=== PATIENT | female | born 1965 | race Caucasian/White ===

== ENCOUNTER 2024-05-09 20:15 | Emergency (ER) | payer SELFPAY ==
[~2024-05-09] VITALS: Ht 167.6 cm; Wt 51.5 kg
[2024-05-09 20:29] VITALS: BP 146/87; PULSE 103; O2SAT 98
[2024-05-09 21:12] LABS: BILIRUBIN,URINE NEGATIVE (Neg); CLARITY,URINE SLIGHTLY CLOUDY (Clear); COLOR,URINE YELLOW (Yellow); GLUCOSE, URINE NEGATIVE (Neg); KETONES,URINE NEGATIVE (Neg); LEUKOCYTE ESTERASE ,URINE TRACE (Neg); NITRITES, URINE POSITIVE (Neg); OCCULT BLOOD,URINE LARGE (Neg); PH,URINE 6.5 (4.8-8.0); PROTEIN,URINE NEGATIVE (Neg)
[2024-05-09 21:23] LABS: UA COLLECTION TYPE CLN CATCH MIDSTREAM
[2024-05-09 21:26] LABS: WBC,URINE 0-4 /HPF (0-4)
[2024-05-09 21:27] LABS: BACTERIA,URINE 2+ /HPF (Neg); MUCUS STRANDS FEW /LPF (Neg); SQUAMOUS EPITHELIAL CELL,UR FEW /LPF (FEW)
[2024-05-09] MEDS ORDERED: NITR100C PO (21:36)
[2024-05-09 21:39] VITALS: RESP 16
[2024-05-09] MEDS: ketorolac trometh 15mg/ml vial 15 MG/ML ML IM ONE (21:39)
[2024-05-09 21:52] VITALS: TEMP 99
[2024-05-10] MEDS ORDERED: CYCL-1 PO (15:49)
== END 2024-05-09 22:06 | disposition home or self-care (01) ==
LOC: ER 20:16
DX: R51.9 Headache, unspecified (principal); N39.0 Urinary tract infection, site not specified
CPT/HCPCS: 81001; 87088; 87186; 96372; 99283; J1885; 87077

== ENCOUNTER 2024-05-10 14:00 | Emergency (ER) | payer OTHER ==
[~2024-05-10] VITALS: Ht 167.6 cm; Wt 50.7 kg
[~2024-05-10 14:00] MED LIST: NITR100C PO
[2024-05-10 14:50] VITALS: BP 108/67; PULSE 83; RESP 14; TEMP 98.4; O2SAT 100
[2024-05-10] MEDS: cyclobenzaprine 10mg tablet PO ONE (15:41)
[2024-05-10] MEDS ORDERED: CYCL-1 PO (15:49)
== END 2024-05-10 16:12 | disposition home or self-care (01) ==
LOC: ER 14:00
DX: M54.81 Occipital neuralgia (principal); Z79.899 Other long term (current) drug therapy
CPT/HCPCS: 99283